=== PATIENT | female | born 1985 ===

== ENCOUNTER 2022-01-30 22:10 | Inpatient (IN) | payer OTHER ==
[~2022-01-30] VITALS: Ht 170.2 cm; Wt 67.0 kg
[2022-01-30] MEDS ORDERED: LORazepam 2 MG/ML VIAL IM ONE (22:30)
[2022-01-30 23:18] LABS: COVID AG,FIA SOURCE NASAL SWAB
[2022-01-31 00:28] LABS: BASOPHILS % (AUTO) 0.3 % (0.0-2.0); EOSINOPHILS % (AUTO) 0.1 % (1.0-6.0); HEMATOCRIT 31.3 % (36-46); HEMOGLOBIN 10.7 g/dL (12.0-16.0); LYMPHOCYTES # (AUTO) 1.7 K/uL (1.0-4.8); LYMPHOCYTES % (AUTO) 12.8 % (22.0-44.0); MEAN CORPUSCULAR HEMOGLOBIN 31.1 pg (26.0-34.0); MEAN CORPUSCULAR VOLUME 92 fL (80-100); MONOCYTES # (AUTO) 1.1 K/uL (0.1-1.0); MONOCYTES % (AUTO) 8.6 % (2.0-9.0); NEUTROPHILS # (AUTO) 10.3 K/uL (1.8-7.7); NEUTROPHILS % (AUTO) 78.2 % (40.0-70.0); PLATELET COUNT (AUTO) 395 K/uL (150-450); RED BLOOD CELL COUNT(AUTO) 3.42 MIL/uL (4.00-5.20); RED CELL DISTRIBUTION WIDTH 12.3 % (11.5-14.5)
[2022-01-31 00:39] LABS: ANION GAP 18 mmol/L (8-16); CALCIUM, TOTAL 8.9 mg/dL (8.8-10.5); CARBON DIOXIDE 21 mmol/L (22-29); CHLORIDE 96 mmol/L (98-107); CREATININE 1.08 mg/dL (0.60-1.30); GLOMERULAR FILTR. RATE CALC 58 mL/min (>60); GLUCOSE,RANDOM 88 mg/dL (70-110); POTASSIUM 3.4 mmol/L (3.5-5.1); SODIUM SERUM 135 mmol/L (136-145); UREA NITROGEN, BLOOD 18 mg/dL (7-18)
[2022-01-31 00:57] LABS: ALANINE AMINOTRANSFERASE 72 U/L (12-78); ALBUMIN 3.5 g/dL (3.4-5.0); ALKALINE PHOSPHATASE 61 U/L (46-116); ASPARTATE AMINOTRANSFERASE 94 U/L (15-37); BILIRUBIN,TOTAL 0.9 mg/dL (0.1-1.0); HCG,QUANTITATIVE < 1 mIU/mL (0-6); TOTAL PROTEIN, SERUM 7.7 g/dL (6.4-8.2)
[2022-01-31 00:58] LABS: CREATINE KINASE, TOTAL ONLY 3351 U/L (26-192)
[2022-01-31] MEDS ORDERED: SODIUM CHLORIDE 0.9% 1,000 ML IV ONE ×2 (01:00→03:30)
[2022-01-31 01:01] LABS: LITHIUM < 0.20 mmol/L (0.60-1.20)
[2022-01-31] MEDS ORDERED: ACETAMINOPHEN 325 MG TABLET PO PRN (04:00)
[2022-01-31] MEDS ORDERED: ONDANSETRON HCL 4 MG/2 ML VIAL IVP PRN (04:00)
[2022-01-31] MEDS ORDERED: POTASSIUM CHL 10 MEQ/WATER 50 ML IV PRN (04:15)
[2022-01-31 04:35] LABS: % IRON SATURATION 20.5 % (22-44)
[2022-01-31 04:37] LABS: APPEARANCE,URINE CLEAR (CLEAR); BILIRUBIN,URINE NEGATIVE (NEGATIVE); GLUCOSE, URINE (UA) NEGATIVE (NEGATIVE); KETONES,URINE 40-60 mg/dL (NEGATIVE); LEUKOCYTE ESTERASE ,URINE SMALL (NEGATIVE); NITRATE,URINE NEGATIVE (NEGATIVE); OCCULT BLOOD,URINE TRACE (NEGATIVE); PROTEIN,URINE TRACE mg/dL (NEGATIVE); SPECIFIC GRAVITIY, URINE 1.023 (1.003-1.030); UROBILINOGEN,URINE <=1.0 mg/dL (<=1.0)
[2022-01-31] MEDS: SODIUM CHLORIDE 0.9% 1,000 ML IV SCH ×3 (04:39→22:10)
[2022-01-31 04:44] LABS: AMPHET/METH SCREEN,URINE POSITIVE (NEGATIVE); BARBITURATE SCREEN, URINE NEGATIVE (NEGATIVE); BENZODIAZEPINES SCREEN,URINE NEGATIVE (NEGATIVE); CANNABINOID SCREEN,URINE NEGATIVE (NEGATIVE); COCAINE SCREEN,URINE NEGATIVE (NEGATIVE); METHADONE SCREEN, URINE NEGATIVE (NEGATIVE); OPIATE SCREEN,URINE NEGATIVE (NEGATIVE); PHENCYCLIDINE SCREEN,URINE NEGATIVE (NEGATIVE)
[2022-01-31 04:49] LABS: RBC,URINE 0-2 /HPF (0-2)
[2022-01-31 04:50] LABS: BACTERIA,URINE None Seen /HPF (None Seen)
[2022-01-31] MEDS ORDERED: HEPARIN SODIUM,PORCINE 5,000 UNITS/ML VIAL SQ SCH (08:00)
[2022-01-31] MEDS: CefTRIAXone 1 GM/DEXTROSE 50 ML IV SCH (08:05)
[2022-01-31 13:59] VITALS: BP 111/58
[2022-01-31] MEDS: POTASSIUM CHLORIDE 20 MEQ ER TABLET PO PRN (16:35)
[2022-01-31 19:38] VITALS: BP 105/61
[2022-01-31 23:08] VITALS: BP 100/54
[2022-02-01 03:15] VITALS: BP 100/60
[2022-02-01] MEDS: SODIUM CHLORIDE 0.9% 1,000 ML IV SCH (04:00)
[2022-02-01] MEDS: CefTRIAXone 1 GM/DEXTROSE 50 ML IV SCH (08:06)
[2022-02-01 08:25] VITALS: BP 104/59
[2022-02-01] MEDS: POTASSIUM CHLORIDE 20 MEQ ER TABLET PO PRN (09:32)
[2022-02-01 15:02] VITALS: BP 110/62
[2022-02-01] MEDS ORDERED: KETOROLAC TROMETHAMINE 30 MG/ML VIAL IVP ONE (20:00)
[2022-02-01 20:09] VITALS: BP 103/54
[2022-02-01] MEDS: MELATONIN 3 MG TABLET PO PRN (22:26)
[2022-02-02] MEDS ORDERED: DiphenhydrAMINE HCL 50 MG/ML VIAL IVP ONE
[2022-02-02 04:14] VITALS: BP 112/52
[2022-02-02 08:16] VITALS: BP 130/78
[2022-02-02] MEDS ORDERED: SODIUM CHLORIDE 0.9% 250 ML IV ONE (10:24)
[2022-02-02] MEDS: CefTRIAXone 1 GM/DEXTROSE 50 ML IV SCH (10:30)
[2022-02-02 11:57] LABS: ANION GAP 10 mmol/L (8-16); CALCIUM, TOTAL 8.7 mg/dL (8.8-10.5); CARBON DIOXIDE 22 mmol/L (22-29); CHLORIDE 107 mmol/L (98-107); CREATININE 0.55 mg/dL (0.60-1.30); GLUCOSE,RANDOM 110 mg/dL (70-110); POTASSIUM 3.7 mmol/L (3.5-5.1); SODIUM SERUM 139 mmol/L (136-145); UREA NITROGEN, BLOOD 5 mg/dL (7-18)
[2022-02-02 12:03] LABS: GLOMERULAR FILTR. RATE CALC > 60 mL/min (>60)
[2022-02-02 12:17] LABS: BASOPHILS % (AUTO) 0.9 % (0.0-2.0); EOSINOPHILS % (AUTO) 1.7 % (1.0-6.0); HEMATOCRIT 28.4 % (36-46); HEMOGLOBIN 9.7 g/dL (12.0-16.0); LYMPHOCYTES # (AUTO) 0.9 K/uL (1.0-4.8); LYMPHOCYTES % (AUTO) 25.9 % (22.0-44.0); MEAN CORPUSCULAR HEMOGLOBIN 31.5 pg (26.0-34.0); MEAN CORPUSCULAR VOLUME 92 fL (80-100); MONOCYTES # (AUTO) 0.3 K/uL (0.1-1.0); MONOCYTES % (AUTO) 8.1 % (2.0-9.0); NEUTROPHILS # (AUTO) 2.1 K/uL (1.8-7.7); NEUTROPHILS % (AUTO) 63.4 % (40.0-70.0); PLATELET COUNT (AUTO) 338 K/uL (150-450); RED BLOOD CELL COUNT(AUTO) 3.08 MIL/uL (4.00-5.20); RED CELL DISTRIBUTION WIDTH 12.2 % (11.5-14.5)
[2022-02-02 16:21] VITALS: BP 104/59
[2022-02-02] MEDS: MELATONIN 3 MG TABLET PO PRN (20:03)
[2022-02-02 20:57] VITALS: BP 107/64
[2022-02-02] MEDS ORDERED: LITHIUM CARBONATE 300 MG CAPSULE PO SCH (21:00)
[2022-02-02] MEDS ORDERED: QUEtiapine FUMARATE 200 MG TABLET PO SCH (21:00)
[2022-02-03 03:05] VITALS: BP 109/60
[2022-02-03] MEDS: CefTRIAXone 1 GM/DEXTROSE 50 ML IV SCH (08:02)
[2022-02-03 08:25] VITALS: BP 104/61
[2022-02-03] MEDS ORDERED: LITH300C3 PO (11:35)
[2022-02-03] MEDS ORDERED: QUET200T PO (11:35)
== END 2022-02-03 14:30 | disposition home or self-care (01) | DRG 463 ==
LOC: EMS 22:11 → 6N 01-31 03:48 → 5S 01-31 11:29 → 6S 01-31 12:05
PROVIDERS: ADMIT Internal Medicine; ATTEND Internal Medicine
DX: N39.0 Urinary tract infection, site not specified (principal); G92.9 Unspecified toxic encephalopathy; E87.2 Acidosis; F31.4 Bipolar disorder, current episode depressed, severe, without psychotic features; F11.23 Opioid dependence with withdrawal; F15.23 Other stimulant dependence with withdrawal; Z20.822 Contact with and (suspected) exposure to COVID-19; E87.6 Hypokalemia; F99 Mental disorder, not otherwise specified; F41.1 Generalized anxiety disorder; G25.81 Restless legs syndrome; F19.10 Other psychoactive substance abuse, uncomplicated; Z59.00 Homelessness unspecified; Z79.899 Other long term (current) drug therapy
CPT/HCPCS: 71045; 80048; 80053; 80178; 81001; 82550; 83540; 83550; 83605; 84132; 84702; 85025; 85045; 87040; 87081; 87086; 99285; G0378; G0480; J0696; J1200; J1644; J1885; J2060; J7030; J7050; 36415-L1; 36415-TC